=== PATIENT | female | born 1990 | race Caucasian/White ===

== ENCOUNTER 2022-03-24 10:19 | Outpatient (CLI) | payer OTHER, SELFPAY ==
--- NOTE | ~2022-03-24 | MR_ITS ---
EXAMINATION: MR knee RT wo con DATE: 03/24/2022 11:32 INDICATION: Posterior and anterior right knee pain, swelling, knee giving out. TECHNIQUE: Magnetic resonance imaging (MRI) of the right knee was performed without intravenous contr ast. Sequences included axial PD-weighted FS FSE, coronal PD-weighted FSE and PD-weighted FS FSE, sag ittal PD-weighted FSE, and sagittal T2-weighted FS FSE. COMPARISON: None. FINDINGS: Medial compartment: Mild degenerative signal change at the apex of the body of the medial meniscus. Mild diffuse thinning of cartilage. Lateral compartment: Meniscus intact. Mild diffuse cartilage thinning. Patellofemoral compartment: Cartilage and retinacula intact. Ligaments and tendons: ACL, PCL, MCL, and LCL are intact. Remaining flexor and extensor tendons are normal. Fluid: Trace joint fluid. 7 mm cystic structure at the midline possibly associated with the anterior horn of the lateral meniscus. Osseous/other: No suspicious focal or diffuse marrow signal. IMPRESSION: 1. Possible 7 mm perimeniscal cyst associated with the anterior horn of the lateral meniscus, may ref lect the presence of an occult lateral meniscal tear. 2. Degenerative fraying of the apex of the body of the medial meniscus, without focal tear. Reviewed, dictated and finalized at location K. IMPRESSION: 1. Possible 7 mm perimeniscal cyst associated with the anterior horn of the lat eral meniscus, may reflect the presence of an occult lateral meniscal tear. 2. Degenerative fraying of the apex of the body of the medial meniscus, without focal tear.
== END 2022-03-24 10:20 | disposition home or self-care (01) ==
PROVIDERS: Visit Provider Physician Assistant
DX: M25.561 Pain in right knee (principal)
CPT/HCPCS: 73721